=== PATIENT | female | born 1965 | race Caucasian/White ===

== ENCOUNTER 2022-09-02 19:46 | Emergency (ER) | payer BC ==
[~2022-09-02] VITALS: Ht 160 cm; Wt 82.6 kg
[2022-09-02 20:07] VITALS: BP 125/82
--- NOTE | 2022-09-02 20:36 | NUR ---
LEONARD U/S TECH AT BEDSIDE
[2022-09-02] MEDS ORDERED: SULF1TAB48 PO (23:05)
== END 2022-09-02 23:13 | disposition home or self-care (01) ==
LOC: ER 19:51
DX: L03.115 Cellulitis of right lower limb (principal); M79.89 Other specified soft tissue disorders; Z60.2 Problems related to living alone
CPT/HCPCS: 93971-TC

== ENCOUNTER 2025-01-29 10:14 | Inpatient (IN) | payer BC ==
[~2025-01-29] VITALS: Ht 160 cm; Wt 61.2 kg
[~2025-01-29 10:14] MED LIST: SULF1TAB48 PO
[2025-01-29 10:28] VITALS: TEMP 98.6
[2025-01-29] MEDS ORDERED: ONDANSETRON HCL/PF 4 MG/2 ML VIAL ONE (10:48)
[2025-01-29] MEDS ORDERED: MORPHINE SULFATE INJ 4 MG/ML DISP.SYRIN ONE ×2 (10:49→12:45)
[2025-01-29] MEDS: IV NS 0.9% 1,000 ML BAG IV ONE ×2 (10:55→13:25)
[2025-01-29 10:56] LABS: BASOPHILS % (AUTO) 0.3 % (0.0-2.0); EOSINOPHILS # (AUTO) 0.1 K/uL (0.0-0.7); EOSINOPHILS % (AUTO) 0.9 % (0.0-6.0); HEMATOCRIT 46 % (33-45); HEMOGLOBIN 15.1 g/dL (11.5-14.8); LYMPHOCYTES % (AUTO) 13.5 % (20.0-44.0); MEAN CORPUSCULAR HEMOGLOBIN 31 PG (26.0-33.0); MEAN CORPUSCULAR HGB CONC 33 g/dl (31.0-36.0); MEAN CORPUSCULAR VOLUME 94 fL (82-100); MONOCYTES # (AUTO) 0.3 K/uL (0.1-1.30); MONOCYTES % (AUTO) 4.8 % (2.0-12.0); NEUTROPHILS # (AUTO) 5.7 K/uL (1.8-8.9); NEUTROPHILS % (AUTO) 80.5 % (43.0-81.0); PLATELET COUNT (AUTO) 310 K/uL (150-450); RED BLOOD CELL COUNT(AUTO) 4.82 MIL/uL (4.0-5.2); RED CELL DISTRIBUTION WIDTH 12.7 % (11.5-15.0); WHITE BLOOD COUNT (AUTO) 7.1 K/uL (4.3-11.0)
[2025-01-29] MEDS: ONDANSETRON HCL/PF 4 MG/2 ML VIAL IVP ONE (10:59)
[2025-01-29] MEDS: MORPHINE SULFATE INJ 2 MG/ML DISP.SYRIN IV ONE ×2 (11:00→12:48)
[2025-01-29 11:03] LABS: CALCIUM, SERUM 9.6 mg/dL (8.5-10.1); CREATININE 0.8 mg/dL (0.6-1.3); POTASSIUM 4.1 mmol/L (3.5-5.1)
[2025-01-29 11:10] LABS: ALBUMIN 4.3 g/dL (3.4-5.0); BILIRUBIN,DIRECT 0.2 mg/dL (0.0-0.2); BILIRUBIN,TOTAL 0.7 mg/dL (0.2-1.0); TOTAL PROTEIN, SERUM 7.8 g/dL (6.4-8.2)
[2025-01-29 13:00] LABS: APPEARANCE,URINE CLEAR (CLEAR); BILIRUBIN,URINE 1+ (NEGATIVE); BLOOD, URINE NEGATIVE Ery/uL (NEGATIVE); COLOR,URINE DARK YELLOW (YELLOW); KETONES,URINE 1+ mg/dL (NEGATIVE); LEUKOCYTE ESTERASE ,URINE NEGATIVE (NEGATIVE); NITRITE, URINE NEGATIVE (NEGATIVE); PROTEIN,URINE TRACE mg/dl (NEGATIVE); UGLUCOSE NEGATIVE (NEGATIVE); UROBILINOGEN,URINE 0.2 EU/dL (0.2)
[2025-01-29] MEDS ORDERED: METRONIDAZOLE 500MG/ NS 100ML 500 MG in PREMIX 1 EA IV SCH ×2 (13:00→21:00)
[2025-01-29] MEDS: CIPROFLOXACIN IV RTU 400 MG in PREMIX 1 EA IV SCH (13:00)
[2025-01-29] MEDS ORDERED: PIPERACILLIN /TAZOBACTAM 3.375 G in IV D5W 50 ML IV ONE (13:00)
[2025-01-29 13:12] LABS: ADD URINE CULTURE NO; BACTERIA,URINE Rare /HPF (None Seen); CALCIUM OXALATE CRYSTALS,UR Moderate /HPF (None Seen); RBC,URINE 0-2 /HPF (0-2); WBC,URINE 0-2 /HPF (0-3)
[2025-01-29] MEDS: HYDROMORPHONE 1 MG/1 ML DISP.SYRIN IV ONE (13:25)
[2025-01-29] MEDS ORDERED: IV NS 0.9% 250 ML IV ONE (14:13)
[2025-01-29] MEDS ORDERED: IOHEXOL-350 100 ML VIAL IV ONE (14:13)
[2025-01-29] MEDS: METRONIDAZOLE 500MG/ NS 100ML 500 MG in PREMIX 1 EA IV SCH (15:00)
[2025-01-29] MEDS ORDERED: CALC-1026 PO (15:18)
[2025-01-29] MEDS ORDERED: FERR325T27 PO (15:18)
[2025-01-29] MEDS ORDERED: CETI-90 PO (15:18)
[2025-01-29] MEDS ORDERED: DOCU-141 PO (15:18)
[2025-01-29] MEDS ORDERED: MAGNESIUM PO (15:18)
[2025-01-29] MEDS ORDERED: LEVO100T PO (15:18)
[2025-01-29] MEDS ORDERED: ZOLP10TA2 PO (15:18)
[2025-01-29] MEDS ORDERED: B1/B1TAB5 PO (15:18)
[2025-01-29] MEDS ORDERED: WEGOVY SQ (15:18)
[2025-01-29] MEDS ORDERED: CHOL500062 PO (15:18)
[2025-01-29 16:00] VITALS: BP 139/86; O2SAT 94
[2025-01-29] MEDS ORDERED: ACETAMINOPHEN 325 MG TABLET PO PRN (17:00)
[2025-01-29] MEDS ORDERED: ONDANSETRON HCL/PF 4 MG/2 ML VIAL IVP PRN (17:00)
[2025-01-29] MEDS ORDERED: MORPHINE SULFATE INJ 4 MG/ML DISP.SYRIN IV PRN (17:00)
[2025-01-29] MEDS ORDERED: MAG HYDROX/AL HYDROX/SIMETH 30 ML UDC PO PRN (17:00)
[2025-01-29] MEDS ORDERED: Z GUARD REMEDY 4 OZ OINT TP PRN (17:00)
[2025-01-29] MEDS ORDERED: IV D5/0.45 NACL 1,000 ML IV SCH (17:00)
[2025-01-29] MEDS ORDERED: MAGNESIUM HYDROXIDE 30 ML UDC PO PRN (17:00)
[2025-01-30] MEDS ORDERED: CIPROFLOXACIN IV RTU 400 MG in PREMIX 1 EA IV SCH (01:00)
[2025-01-30] MEDS ORDERED: PANTOPRAZOLE 40 MG VIAL IV SCH (09:00)
== END 2025-01-29 17:22 | disposition left against medical advice (07) | DRG 446 ==
LOC: ER 10:16 → MED 16:39
DX: K81.0 Acute cholecystitis (principal); E03.9 Hypothyroidism, unspecified; Z88.0 Allergy status to penicillin; Z85.850 Personal history of malignant neoplasm of thyroid
CPT/HCPCS: 36415; 76705-TC; 80048-TC; 80076-TC; 81001; 83690-TC; 85025-TC; A4216; A4223; G0378; J0744; J1171; J2270; J2405; J2543; J7030; J7050; J7060; Q9967